=== PATIENT | female | born 2000 | race Caucasian/White ===

== ENCOUNTER 2019-09-19 20:44 | Emergency (ER) | payer BC ==
[2019-09-19 21:00] VITALS: BP 125/74
--- NOTE | 2019-09-19 21:04 | UC ---
Throat Pain/Nasal Skyler HPI - HPI Summary HPI Summary: Patient is a 18yo female presenting with "tonsillitis for the second time in 2 weeks." Patient states she tested negative for strep throat but was treated with 10 day course of antibiotics anyway for swollen tonsils with "white patches of bacteria." Patient states she immediately began to feel better but "as soon as she finished the antibiotic two days ago, she began to feel her tonsils swell again." Patient states this is the third time this year with similar symptoms and states she already plans to go home for gi break and see her doctor to talk about getting tonsils removed. Patient denies other URI symptoms. Denies fever and chills despite low grade temperature today during visit. Denies cough. Denies sore throat, stating it's "just her tonsils. " Denies headaches. Notes increased fatigue. Denies history of mono but states it has crossed her mind as a source of her symptoms. Also denies n/v and abd pain. - History of Current Complaint Chief Complaint: UCRespiratory Stated Complaint: SORE THROAT Hx Obtained From: Patient Hx Last Menstrual Period: 08/16/19 Onset/Duration: Gradual Onset, Lasting Days Severity: Mild Pain Intensity: 2 - Allergies/Home Medications Allergies/Adverse Reactions: Allergies Allergy/AdvReac Type Severity Reaction Status Date / Time No Known Allergies Allergy Verified 09/19/19 21:00 Home Medications: Home Medications NK [No Home Medications Reported] 09/19/19 [History Confirmed 09/19/19] PMH/Surg Hx/FS Hx/Imm Hx Previously Healthy: Yes - Surgical History Surgical History: None - Family History Known Family History: Positive: Unknown, Non-Contributory - Social History Occupation: Student Lives: Dormitory/Roommates Alcohol Use: None Substance Use Type: None Smoking Status (MU): Never Smoked Tobacco Review of Systems All Other Systems Reviewed And Are Negative: Yes Constitutional: Positive: Fatigue. Negative: Fever, Chills ENT: Positive: Sore Throat - painful tonsils. Negative: Ear Ache, Nasal Discharge, Sinus Congestion, Sinus Pain/Tenderness Respiratory: Positive: Negative Cardiovascular: Positive: Negative Gastrointestinal: Positive: Negative Musculoskeletal: Positive: Negative Neurological: Positive: Negative Physical Exam Triage Information Reviewed: Yes Appearance: Well-Appearing, No Pain Distress, Well-Nourished Vital Signs: Initial Vital Signs Temp 100.3 F 09/19/19 20:49 Pulse 74 09/19/19 20:49 Resp 16 09/19/19 20:49 BP 125/74 09/19/19 20:49 Pulse Ox 97 09/19/19 20:49 Lab Results 09/19/19 Range/Units 21:05 Group A Strep Rapid Negative (Negative) Vital Signs Reviewed: Yes Eyes: Positive: Conjunctiva Clear ENT: Positive: Hearing grossly normal, Pharyngeal erythema, TMs normal, Tonsillar swelling, Uvula midline. Negative: Nasal congestion, Nasal drainage, Tonsillar exudate, Trismus, Muffled voice, Hoarse voice Neck exam: Normal Neck: Positive: Supple, Nontender, No Lymphadenopathy Respiratory Exam: Normal Respiratory: Positive: Lungs clear, Normal breath sounds, No respiratory distress Cardiovascular Exam: Normal Cardiovascular: Positive: RRR Neurological: Positive: Alert Psychological: Positive: Age Appropriate Behavior Throat Pain/Nasal Course/Dx - Course Course Of Treatment: Rapid strep test negative. Discussed with patient that I sent throat culture and did not want to prescribe further antibiotics until results come back positive for bacterial source since she just recently was treated. Patient voiced concern for mono and requested testing. I informed her positive mono would provide answer to her symptoms but would not change course of treatment. 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 I instructed her to continue with symptomatic treatment and follow up with her pcp or ENT back home for evaluation of recurrent tonsillitis. Informed her she will be notified with any positive results of throat culture or monospot, and that she will need to follow up with sports med to be cleared for track if positive for mono. Patient voiced understanding and agreed with plan. - Differential Dx/Diagnosis Provider Diagnosis: Recurrent acute tonsillitis Discharge ED - Sign-Out/Discharge Documenting (check all that apply): Patient Departure All imaging exams completed and their final reports reviewed: No Studies - Discharge Plan Condition: Stable Disposition: HOME Patient Education Materials: Pharyngitis (ED) Referrals: [facility] [Outside] - If Needed Additional Instructions: As discussed, your rapid strep test was negative today. A throat culture has been sent and you will be notified with any changes needing to be made in your treatment based on the results. You have also been tested for mono today. You will be notified only if the result is positive. If your mono test is positive, you should follow up with the sports medicine referral listed below to make sure you are ok to continue with sports. It is recommended that you follow up with your primary care provider or an Ear Nose Throat specialist at home for further evaluation of your recurrent tonsillitis. Return or go to the emergency room with any new or worsening symptoms. - Billing Disposition and Condition Condition: STABLE Disposition: Home - Attestation Statements Provider Attestation: I was available for consult. This patient was seen by the ZELDA. The patient was not presented to, seen by, or examined by me. -Lon
[2019-09-21 15:18] LABS: EBV Capsid Ag IgG Ab Positive (Negative); EBV Capsid Ag IgM Ab Negative (Negative); Epstein-Barr Nuclear Antigen Positive (Negative)
== END 2019-09-19 21:45 | disposition home or self-care (01) ==
LOC: UCEAST 20:44
DX: J03.91 Acute recurrent tonsillitis, unspecified (principal); R53.83 Other fatigue
CPT/HCPCS: 36415; 86308; 86664; 86665; 87070; 87651; 99212; G0463